=== PATIENT | female | born 1980 | race Caucasian/White ===

== ENCOUNTER → 2017-05-08 | Outpatient (CLI) | payer OTHER ==
[~2017-05-08] MED LIST: EFFEXOR XR75 MG PO; KEFLEX500 MG PO; NEURONTIN100 MG PO; NEURONTIN300 MG PO; SYNTHROID112 MCG PO; ZEBETA5 MG
== END | disposition home or self-care (01) ==
LOC: CDC 10:04
DX: Z01.810 Encounter for preprocedural cardiovascular examination (principal); M17.12 Unilateral primary osteoarthritis, left knee; M22.2X2 Patellofemoral disorders, left knee; M25.562 Pain in left knee; Z88.5 Allergy status to narcotic agent; Z88.6 Allergy status to analgesic agent
CPT/HCPCS: 93000

== ENCOUNTER 2017-05-19 05:01 | Emergency (ER) | payer OTHER ==
[~2017-05-19] VITALS: Ht 167.6 cm; Wt 113.2 kg
[2017-05-19] MEDS ORDERED: DULCOLAX5 MG PO (05:58)
[2017-05-19 06:15] VITALS: BP 135/94
== END 2017-05-19 06:16 | disposition home or self-care (01) ==
LOC: EME 05:01
DX: K59.00 Constipation, unspecified (principal); R19.7 Diarrhea, unspecified; E06.3 Autoimmune thyroiditis; Z88.6 Allergy status to analgesic agent
CPT/HCPCS: 99281; 99283